=== PATIENT | male | born 1950 | race Caucasian/White ===

== ENCOUNTER 2023-07-02 07:35 | Outpatient (CLI) | payer OTHER | END 2023-07-02 07:49 | disposition home or self-care (01) | LOC: TOM 07:35 | DX: K57.20 Diverticulitis of large intestine with perforation and abscess without bleeding (principal); N32.1 Vesicointestinal fistula; D64.9 Anemia, unspecified; Z12.11 Encounter for screening for malignant neoplasm of colon ==

== ENCOUNTER 2023-08-27 10:30 | Inpatient (IN) | payer OTHER ==
[~2023-08-27] VITALS: Ht 165.1 cm; Wt 52.2 kg
[2023-08-27] MEDS ORDERED: ZESTRIL10 M1 PO (14:35)
[2023-08-27] MEDS ORDERED: FOLIC ACID20 MG PO (14:35)
[2023-08-27] MEDS ORDERED: ACID REDUCER20 M1 PO (14:35)
[2023-08-27] MEDS ORDERED: GLYCOTROL CAPS1 EACH PO (14:36)
[2023-09-05] MEDS ORDERED: levoFLOXacin IN DEXTROSE 5 % 5 MG/ML PIGGYBAG IV ONE (12:52)
[2023-09-05] MEDS ORDERED: METRONIDAZOLE/SODIUM CHLORIDE 500 MG/100 ML PIGGYBACK IV ONE (12:52)
[2023-09-05] MEDS ORDERED: LIDOCAINE HCL 1%/Epi 20ML VIAL IJ ONE (14:14)
[2023-09-05] MEDS ORDERED: OxyCODONE HCL 5 MG TABLET (ROXICODONE) PO PRN (17:15)
[2023-09-05] MEDS ORDERED: ONDANSETRON HCL 2 MG/ML VIAL IV PRN (17:15)
[2023-09-05] MEDS ORDERED: RINGERS SOLUTION,LACTATED 1,000 ML IV SCH (17:15)
[2023-09-05] MEDS ORDERED: MORPHINE SULFATE 4 MG/ML CARTRIDGE IV PRN (17:15)
[2023-09-05] MEDS ORDERED: ACETAMINOPHEN 500 MG GEL..CAP PO SCH (18:00)
[2023-09-05] MEDS ORDERED: ONDANSETRON HCL 2 MG/ML VIAL ONE (19:16)
[2023-09-05] MEDS ORDERED: CIPROFLOXACIN IN 5 % DEXTROSE 400 MG/200 ML PIGGYBAG IV ONE (20:33)
[2023-09-05] MEDS ORDERED: FAMOTIDINE/PF 20 MG/2 ML VIAL ONE (20:33)
[2023-09-05] MEDS ORDERED: CIPROFLOXACIN IN 5 % DEXTROSE 400 MG/200 ML PIGGYBAG IV SCH (21:00)
[2023-09-05] MEDS ORDERED: FAMOTIDINE/PF 20 MG/2 ML VIAL IV PUSH SCH (21:00)
[2023-09-06] MEDS ORDERED: METRONIDAZOLE/SODIUM CHLORIDE 500 MG/100 ML PIGGYBACK IV SCH (01:00)
[2023-09-06] MEDS ORDERED: GABAPENTIN 300 MG CAPSULE PO SCH (01:00)
[2023-09-06 07:19] LABS: HEMATOCRIT 32.3 % (39.0-48.0); HEMOGLOBIN 10.9 g/dL (13-16.00); MEAN CELL VOLUME 87.9 fL (80.0-100.00); MEAN CORPUSCULAR HEMOGLOBIN 29.6 pg (27.00-32.0); MEAN CORPUSCULAR HGB CONC 33.7 g/dl (32.0-36.0); PLATELET COUNT 193 K/uL (150-450); RED BLOOD COUNT 3.68 M/uL (4.00-6.00)
[2023-09-06 08:06] LABS: ALBUMIN 2.9 gm/dL (3.4-5.0); CALCIUM 8.5 mg/dL (8.5-10.1); CREATININE SERUM 0.93 mg/dL (0.70-1.30); PHOSPHOROUS 3.1 mg/dL (2.5-4.9); POTASSIUM 4.44 mEq/L (3.5-5.1)
[2023-09-06] MEDS ORDERED: LACTOBACILLUS ACIDOPHILUS 1 CAP CAP PO SCH (09:00)
[2023-09-06] MEDS ORDERED: HYOSCYAMINE SULFATE 0.125 MG TAB.SUBL SL SCH (09:00)
[2023-09-06] MEDS ORDERED: TAMSULOSIN HCL 0.4 MG CAP PO SCH (09:00)
[2023-09-06 10:01] LABS: GFR 79.87; MAGNESIUM 1.2 mg/dL (1.8-2.4)
[2023-09-06] MEDS ORDERED: LISINOPRIL 10 MG TABLET PO SCH (13:03)
[2023-09-06] MEDS ORDERED: ENOXAPARIN SODIUM 40 MG/0.4 ML SYRINGE SUBCUTANEO SCH (17:00)
[2023-09-06] MEDS ORDERED: LORazepam 0.5 MG TABLET PO SCH (17:00)
[2023-09-07] MEDS ORDERED: ENOXAPARIN SODIUM 40 MG/0.4 ML SYRINGE SUBCUTANEO SCH (09:00)
[2023-09-08 06:34] LABS: HEMOGLOBIN 9.2 g/dL (13-16.00); MEAN CELL VOLUME 88.2 fL (80.0-100.00); MEAN CORPUSCULAR HGB CONC 32.8 g/dl (32.0-36.0); PLATELET COUNT 207 K/uL (150-450); RED BLOOD COUNT 3.18 M/uL (4.00-6.00); RED CELL DISTRIBUTION WIDTH 21.1 % (11.5-14.5)
[2023-09-08 06:57] LABS: ALBUMIN 2.2 gm/dL (3.4-5.0); BILIRUBIN TOTAL 0.52 mg/dL (0.3-1.2); CALCIUM 7.7 mg/dL (8.5-10.1); CREATININE SERUM 0.67 mg/dL (0.70-1.30); GFR 116.6; GLOBULINA 2.7 G/DL (2.4-3.5); POTASSIUM 3.42 mEq/L (3.5-5.1); TOTAL PROTEIN 4.9 gm/dL (6.4-8.2)
[2023-09-08] MEDS ORDERED: POTASSIUM CHLORIDE IN WATER 40 MEQ/100 ML PIGGYBAG IV ONE (08:58)
[2023-09-08] MEDS ORDERED: MAGNESIUM SULFATE IN WATER 2 GM/50 ML PIGGYBAG IV STA (09:01)
[2023-09-08] MEDS ORDERED: ENALAPRILAT DIHYDRATE 1.25 MG/ML VIAL IV PRN (18:00)
[2023-09-09] MEDS ORDERED: ACETAMINOPHEN500 M2 PO (13:23)
[2023-09-09] MEDS ORDERED: NEURONTIN300 MG PO (13:24)
[2023-09-09] MEDS ORDERED: LEVSIN/SL0.125 MG SL (13:47)
== END 2023-09-09 17:10 | disposition home or self-care (01) | DRG 330 ==
LOC: SURH 09-05 07:00 → O/R 09-05 07:30 → SURH 09-05 10:30
PROVIDERS: Internal Medicine; ADMIT Surgery; ATTEND Surgery
PROC: 0DBP4ZZ Excision of Rectum, Percutaneous Endoscopic Approach (ICD-10-PCS; 2023-09-05)
PROC: 0DJD8ZZ Inspection of Lower Intestinal Tract, Via Natural or Artificial Opening Endoscopic (ICD-10-PCS; 2023-09-05)
PROC: 0DTN4ZZ Resection of Sigmoid Colon, Percutaneous Endoscopic Approach (ICD-10-PCS; principal; 2023-09-05 07:00)
PROC: BT00ZZZ Plain Radiography of Bladder (ICD-10-PCS; 2023-09-08)
DX: K57.20 Diverticulitis of large intestine with perforation and abscess without bleeding (principal); N32.1 Vesicointestinal fistula; D64.9 Anemia, unspecified